=== PATIENT | male | born 1945 | race Two or more races ===

== ENCOUNTER 2022-03-26 11:42 | Inpatient (IN) | payer OTHER ==
[~2022-03-26] VITALS: Ht 165.1 cm; Wt 62.0 kg
[~2022-03-26 11:42] MED LIST: ASPI-1450 PO; ATOR40TA28 PO; CLOP75TA60 PO; FURO40 PO; LOSA-381 PO; METO25 PO
[2022-03-26 12:40] LABS: BASOPHILS % (AUTO) 0.2 % (0.0-2.0); EOSINOPHILS % (AUTO) 0 % (1.0-6.0); HEMATOCRIT 28.8 % (41-53); LYMPHOCYTES # (AUTO) 0.5 K/uL (1.0-4.8); LYMPHOCYTES % (AUTO) 5.2 % (22.0-44.0); MEAN CORPUSCULAR HEMOGLOBIN 26.2 pg (26.0-34.0); MEAN CORPUSCULAR HGB CONC 31.3 G/dL (31.0-37.0); MEAN CORPUSCULAR VOLUME 84 fL (80-100); MONOCYTES # (AUTO) 0.3 K/uL (0.1-1.0); MONOCYTES % (AUTO) 2.6 % (2.0-9.0); NEUTROPHILS # (AUTO) 9.4 K/uL (1.8-7.7); PLATELET COUNT (AUTO) 224 K/uL (150-450); RED BLOOD CELL COUNT(AUTO) 3.44 MIL/uL (4.50-5.90); RED CELL DISTRIBUTION WIDTH 16.9 % (11.5-14.5)
[2022-03-26 12:47] LABS: APPEARANCE,URINE CLEAR (CLEAR); BILIRUBIN,URINE NEGATIVE (NEGATIVE); GLUCOSE, URINE (UA) NEGATIVE (NEGATIVE); KETONES,URINE NEGATIVE (NEGATIVE); LEUKOCYTE ESTERASE ,URINE NEGATIVE (NEGATIVE); NITRATE,URINE NEGATIVE (NEGATIVE); OCCULT BLOOD,URINE NEGATIVE (NEGATIVE); PROTEIN,URINE NEGATIVE (NEGATIVE); SPECIFIC GRAVITIY, URINE 1.009 (1.003-1.030); UROBILINOGEN,URINE <=1.0 mg/dL (<=1.0)
[2022-03-26 12:53] LABS: CALCIUM, TOTAL 8.3 mg/dL (8.8-10.5); CREATININE 1.43 mg/dL (0.60-1.30); POTASSIUM 4.5 mmol/L (3.5-5.1)
[2022-03-26 13:17] LABS: ALBUMIN 3.3 g/dL (3.4-5.0); BILIRUBIN,TOTAL 0.9 mg/dL (0.1-1.0); TOTAL PROTEIN, SERUM 7.2 g/dL (6.4-8.2)
[2022-03-26] MEDS ORDERED: ALBUTEROL SULFATE 2.5 MG/0.5 ML NEB SOLUTION NEB PRN (13:45)
[2022-03-26] MEDS ORDERED: ONDANSETRON HCL 4 MG/2 ML VIAL IVP PRN (13:45)
[2022-03-26] MEDS: FUROSEMIDE 40 MG/4 ML VIAL IVP SCH ×2 (14:01→21:46)
[2022-03-26] MEDS: OxyCODONE HCL/ACETAMINOPHEN 5-325 MG TABLET PO PRN (16:32)
[2022-03-26] MEDS: ATORVASTATIN CALCIUM 40 MG TABLET PO SCH (21:46)
[2022-03-26] MEDS: HEPARIN SODIUM,PORCINE 5,000 UNITS/ML VIAL SQ SCH (21:46)
[2022-03-26] MEDS: DOCUSATE SODIUM 100 MG CAPSULE PO SCH (21:46)
[2022-03-26 22:15] LABS: COVID AG,FIA SOURCE NASAL SWAB
[2022-03-26 22:45] VITALS: BP 120/74
[2022-03-26] MEDS: ACETAMINOPHEN 325 MG TABLET PO PRN (23:20)
[2022-03-27 03:30] VITALS: BP 118/57
[2022-03-27] MEDS: GuaiFENesin/CODEINE [SUGAR FREE] 200-20MG/10 ML SYRUP UDCUP PO PRN ×3 (03:37→16:46)
[2022-03-27 08:14] VITALS: BP 120/76
[2022-03-27] MEDS: CLOPIDOGREL BISULFATE 75 MG TABLET PO SCH (08:29)
[2022-03-27] MEDS: ASPIRIN 81 MG CHEWABLE TABLET PO SCH (08:29)
[2022-03-27] MEDS: HEPARIN SODIUM,PORCINE 5,000 UNITS/ML VIAL SQ SCH ×2 (08:30→20:07)
[2022-03-27] MEDS: METOPROLOL SUCCINATE 25 MG ER TABLET PO SCH (08:30)
[2022-03-27] MEDS: FAMOTIDINE 20 MG TABLET PO SCH (08:32)
[2022-03-27] MEDS: LOSARTAN POTASSIUM 25 MG TABLET PO SCH (08:32)
[2022-03-27] MEDS: DOCUSATE SODIUM 100 MG CAPSULE PO SCH ×2 (08:32→20:06)
[2022-03-27] MEDS: FUROSEMIDE 40 MG/4 ML VIAL IVP SCH ×2 (08:32→20:07)
[2022-03-27 13:08] VITALS: BP 142/73
[2022-03-27 16:19] VITALS: BP 118/54
[2022-03-27 20:03] VITALS: BP 144/66
[2022-03-27] MEDS: OxyCODONE HCL/ACETAMINOPHEN 5-325 MG TABLET PO PRN (20:06)
[2022-03-27] MEDS: ATORVASTATIN CALCIUM 40 MG TABLET PO SCH (20:06)
[2022-03-28] MEDS: GuaiFENesin/CODEINE [SUGAR FREE] 200-20MG/10 ML SYRUP UDCUP PO PRN ×2 (00:12→15:41)
[2022-03-28] MEDS: OxyCODONE HCL/ACETAMINOPHEN 5-325 MG TABLET PO PRN ×3 (00:12→20:05)
[2022-03-28 00:28] VITALS: BP 117/51
[2022-03-28 07:23] VITALS: BP 122/84
[2022-03-28] MEDS: ASPIRIN 81 MG CHEWABLE TABLET PO SCH (08:45)
[2022-03-28] MEDS: HEPARIN SODIUM,PORCINE 5,000 UNITS/ML VIAL SQ SCH ×2 (08:45→20:41)
[2022-03-28] MEDS: CLOPIDOGREL BISULFATE 75 MG TABLET PO SCH (08:45)
[2022-03-28] MEDS: DOCUSATE SODIUM 100 MG CAPSULE PO SCH ×2 (08:45→20:40)
[2022-03-28] MEDS: FUROSEMIDE 40 MG/4 ML VIAL IVP SCH ×2 (08:45→20:40)
[2022-03-28] MEDS: LOSARTAN POTASSIUM 25 MG TABLET PO SCH (08:46)
[2022-03-28] MEDS: METOPROLOL SUCCINATE 25 MG ER TABLET PO SCH (08:46)
[2022-03-28] MEDS: FAMOTIDINE 20 MG TABLET PO SCH (08:46)
[2022-03-28] MEDS ORDERED: MELATONIN 5 MG TABLET PO PRN (11:15)
[2022-03-28 11:44] VITALS: BP 105/59
[2022-03-28 12:05] LABS: EOSINOPHILS % (AUTO) 0 % (1.0-6.0); HEMATOCRIT 30.8 % (41-53); HEMOGLOBIN 9.7 g/dL (13.5-17.5); LYMPHOCYTES # (AUTO) 0.6 K/uL (1.0-4.8); LYMPHOCYTES % (AUTO) 4.9 % (22.0-44.0); MEAN CORPUSCULAR HEMOGLOBIN 25.6 pg (26.0-34.0); MEAN CORPUSCULAR HGB CONC 31.3 G/dL (31.0-37.0); MEAN CORPUSCULAR VOLUME 82 fL (80-100); MONOCYTES # (AUTO) 1.2 K/uL (0.1-1.0); MONOCYTES % (AUTO) 9.5 % (2.0-9.0); NEUTROPHILS # (AUTO) 11.2 K/uL (1.8-7.7); PLATELET COUNT (AUTO) 222 K/uL (150-450); RED BLOOD CELL COUNT(AUTO) 3.77 MIL/uL (4.50-5.90); RED CELL DISTRIBUTION WIDTH 16.9 % (11.5-14.5)
[2022-03-28 12:06] LABS: ANION GAP 6 mmol/L (8-16); CALCIUM, TOTAL 8.5 mg/dL (8.8-10.5); CARBON DIOXIDE 34 mmol/L (22-29); CHLORIDE 97 mmol/L (98-107); CREATININE 1.14 mg/dL (0.60-1.30); GLUCOSE,RANDOM 116 mg/dL (70-110); POTASSIUM 3.2 mmol/L (3.5-5.1); SODIUM SERUM 137 mmol/L (136-145); UREA NITROGEN, BLOOD 18 mg/dL (7-18)
[2022-03-28 12:08] LABS: NEUTROPHILS % (AUTO) 85.6 % (40.0-70.0)
[2022-03-28 12:09] LABS: GLOMERULAR FILTR. RATE CALC > 60 mL/min (>60)
[2022-03-28] MEDS ORDERED: POTASSIUM CHLORIDE 20 MEQ ER TABLET PO ONE (14:45)
[2022-03-28 15:44] VITALS: BP 138/67
[2022-03-28 20:05] VITALS: BP 121/67
[2022-03-28] MEDS: ATORVASTATIN CALCIUM 40 MG TABLET PO SCH (20:40)
[2022-03-29] VITALS (7 sets, daily range): BP systolic 97–138; BP diastolic 54–86
[2022-03-29] MEDS: OxyCODONE HCL/ACETAMINOPHEN 5-325 MG TABLET PO PRN ×4 (02:04→17:25)
[2022-03-29] MEDS: GuaiFENesin/CODEINE [SUGAR FREE] 200-20MG/10 ML SYRUP UDCUP PO PRN ×2 (04:36→20:21)
[2022-03-29 08:06] LABS: CALCIUM, TOTAL 8.4 mg/dL (8.8-10.5); CREATININE 1.17 mg/dL (0.60-1.30); POTASSIUM 3.9 mmol/L (3.5-5.1)
[2022-03-29] MEDS: FUROSEMIDE 40 MG/4 ML VIAL IVP SCH (08:27)
[2022-03-29] MEDS: SPIRONOLACTONE 25 MG TABLET PO SCH (08:27)
[2022-03-29] MEDS: ASPIRIN 81 MG CHEWABLE TABLET PO SCH (08:28)
[2022-03-29] MEDS: DOCUSATE SODIUM 100 MG CAPSULE PO SCH ×2 (08:28→20:21)
[2022-03-29] MEDS: CLOPIDOGREL BISULFATE 75 MG TABLET PO SCH (08:28)
[2022-03-29] MEDS: FAMOTIDINE 20 MG TABLET PO SCH (08:28)
[2022-03-29] MEDS: LOSARTAN POTASSIUM 25 MG TABLET PO SCH (08:28)
[2022-03-29] MEDS: HEPARIN SODIUM,PORCINE 5,000 UNITS/ML VIAL SQ SCH ×2 (08:29→20:21)
[2022-03-29] MEDS: METOPROLOL SUCCINATE 25 MG ER TABLET PO SCH (08:29)
[2022-03-29] MEDS: MAGNESIUM HYDROXIDE SUSPENSION 30 ML UDCUP PO PRN (12:30)
[2022-03-29] MEDS ORDERED: BISACODYL 10 MG RECTAL RECTAL SUPPOSITORY PR PRN (12:30)
[2022-03-29] MEDS: ACETAMINOPHEN 325 MG TABLET PO PRN ×2 (16:03→20:20)
[2022-03-29] MEDS: ATORVASTATIN CALCIUM 40 MG TABLET PO SCH (20:21)
[2022-03-30 00:37] VITALS: BP 102/57
[2022-03-30 04:44] VITALS: BP 101/54
[2022-03-30 05:35] LABS: GLUCOMETER DEV NAME(LOC) 5N.3; GLUCOSE,POINT OF CARE 98 MG/DL (70-110)
[2022-03-30 08:09] VITALS: BP 124/65
[2022-03-30] MEDS ORDERED: FUROSEMIDE 40 MG TABLET PO SCH (09:00)
[2022-03-30] MEDS: SPIRONOLACTONE 25 MG TABLET PO SCH (09:13)
[2022-03-30] MEDS: ASPIRIN 81 MG CHEWABLE TABLET PO SCH (09:14)
[2022-03-30] MEDS: LOSARTAN POTASSIUM 25 MG TABLET PO SCH (09:14)
[2022-03-30] MEDS: DOCUSATE SODIUM 100 MG CAPSULE PO SCH (09:14)
[2022-03-30] MEDS: CLOPIDOGREL BISULFATE 75 MG TABLET PO SCH (09:15)
[2022-03-30] MEDS: OxyCODONE HCL/ACETAMINOPHEN 5-325 MG TABLET PO PRN ×3 (09:15→17:33)
[2022-03-30] MEDS: HEPARIN SODIUM,PORCINE 5,000 UNITS/ML VIAL SQ SCH (09:15)
[2022-03-30] MEDS: METOPROLOL SUCCINATE 25 MG ER TABLET PO SCH (09:15)
[2022-03-30] MEDS: FAMOTIDINE 20 MG TABLET PO SCH (09:15)
[2022-03-30] MEDS: MAGNESIUM HYDROXIDE SUSPENSION 30 ML UDCUP PO PRN (09:18)
[2022-03-30 11:58] VITALS: BP 116/56
[2022-03-30 16:24] VITALS: BP 138/80
[2022-03-30] MEDS ORDERED: DOCU-385 PO (16:27)
[2022-03-30] MEDS ORDERED: FAMO20 PO (16:28)
[2022-03-30] MEDS ORDERED: SPIR-37 PO (16:29)
== END 2022-03-30 19:42 | disposition home or self-care (01) | DRG 291 ==
LOC: EMS 11:45 → 5S 21:10 → 5N 22:40 → 5S 23:10
PROVIDERS: ADMIT Internal Medicine; ATTEND Internal Medicine
DX: I13.0 Hypertensive heart and chronic kidney disease with heart failure and stage 1 through stage 4 chronic kidney disease, or unspecified chronic kidney disease (principal); I50.23 Acute on chronic systolic (congestive) heart failure; I25.5 Ischemic cardiomyopathy; I25.10 Atherosclerotic heart disease of native coronary artery without angina pectoris; I08.1 Rheumatic disorders of both mitral and tricuspid valves; E78.5 Hyperlipidemia, unspecified; G20 Parkinson's disease; J40 Bronchitis, not specified as acute or chronic; D63.8 Anemia in other chronic diseases classified elsewhere; R74.01 Elevation of levels of liver transaminase levels; Z20.822 Contact with and (suspected) exposure to COVID-19; N18.9 Chronic kidney disease, unspecified; Z63.4 Disappearance and death of family member; Z98.61 Coronary angioplasty status
CPT/HCPCS: 71045; 80048; 80053; 81003; 82550; 82962; 83880; 84484; 85025; 85379; 93005; 97116; 97162; 97530; 99285; J1644; J1940; Q9967; 36415-L1; 36415-TC